=== PATIENT | female | born 1935 | race African-American/Black ===

== ENCOUNTER 2021-06-01 13:05 | Emergency (ER) | payer OTHER ==
[~2021-06-01] VITALS: Ht 172.7 cm; Wt 108.9 kg
--- NOTE | 2021-06-01 13:05 | NUR ---
Pt PIO MATHIS, via gurney to bed 07.
[2021-06-01 13:07] VITALS: BP 107/49
--- NOTE | 2021-06-01 13:23 | NUR ---
XR AT PT BEDSIDE
--- NOTE | 2021-06-01 13:23 | NUR ---
PT MOVED TO BED 6
--- NOTE | 2021-06-01 13:29 | NUR ---
DR CHAIDEZ AT BEDSIDE EVALUATING PT
[2021-06-01] MEDS ORDERED: FUROSEMIDE 40 MG/4 ML VIAL IVP ONE (13:35)
[2021-06-01 14:12] LABS: BASOPHILS % (AUTO) 0.4 % (0.0-2.0); EOSINOPHILS # (AUTO) 0.1 K/uL (0-0.4); EOSINOPHILS % (AUTO) 2.1 % (0.0-4.0); HEMATOCRIT 39.5 % (36-48); HEMOGLOBIN 12.7 g/dL (12.0-16.0); LYMPHOCYTES # (AUTO) 2.3 K/uL (2.5-16.5); LYMPHOCYTES % (AUTO) 41.2 % (20.5-51.1); MEAN CORPUSCULAR HEMOGLOBIN 28 pg (27-31); MEAN CORPUSCULAR HGB CONC 32 g/dL (33-37); MEAN CORPUSCULAR VOLUME 87.3 fL (80-94); MONOCYTES # (AUTO) 0.5 K/uL (0.8-1.0); MONOCYTES % (AUTO) 9.1 % (1.7-9.3); NEUTROPHILS # (AUTO) 2.6 K/uL (1.8-7.7); NEUTROPHILS % (AUTO) 47.2 % (42.2-75.2); PLATELET COUNT (AUTO) 112 K/uL (140-450); RED BLOOD CELL COUNT(AUTO) 4.52 MIL/uL (4.20-5.40); RED CELL DISTRIBUTION WIDTH 15.2 % (11.6-13.7); WHITE BLOOD COUNT (AUTO) 5.5 K/uL (4.8-10.8)
[2021-06-01] MEDS ORDERED: NITROGLYCERIN 0.4 MG TAB SL ONE ×2 (14:15→14:19)
[2021-06-01] MEDS ORDERED: NITROGLYCERIN 50 MG/D5W PREMIX 250 ML IV ONE (14:20)
--- NOTE | 2021-06-01 14:21 | NUR ---
PT BP 102/57 ORDER NITRO TABLET SL AND DRIP, CONFIRMED WITH PRIOR TO ADMINISTRATION. DR. MEYER OK TO GIVE 1 TABLET.
--- NOTE | 2021-06-01 14:23 | NUR ---
85 Y/O FEMALE BIBA FROM HOME C/O SOB AND ACUTE ONSET OF CHEST PAIN X 1 DAY. BASELINE 94%; 98% AFTER BREATHING TX. PER EMS, RALES AND LOBES. PT HAS NOTED EDEMA IN LLE. PT STATES SHE HAS NOT BEEN TAKING HER MEDICATIONS PRESCRIBED INCLUDING NOT TAKING HER LASIX FOR 2 DAYS. 324 ASA AND 0.4MG NTGTWO TIMES PRIOR TO ARRIVAL. PT ALERT AND ORIENTED X4. PMH: HTN, CHF Meds: Lasix NKDA
[2021-06-01 14:35] LABS: ALBUMIN 3.7 g/dL (3.4-5.0); ANION GAP 13.4 (8-16); ASPARTATE AMINOTRANSFERASE 21 U/L (15-37); CARBON DIOXIDE 27.3 mmol/L (21-32); CHLORIDE 101 mmol/L (98-107); CREATININE 1.1 mg/dL (0.6-1.3); GLUCOSE 122 mg/dL (74-106); POTASSIUM 3.7 mmol/L (3.5-5.1); SODIUM SERUM 138 mmol/L (136-145); TOTAL BILIRUBIN 0.7 mg/dL (0.0-1.0); UREA NITROGEN, BLOOD 16 mg/dL (7-18)
[2021-06-01 14:42] VITALS: BP 101/44
[2021-06-01] MEDS ORDERED: ASPIRIN 325 MG TAB PO ONE (14:45)
--- NOTE | 2021-06-01 15:02 | NUR ---
SPOKE WITH JASE AT PT'S PRIMARY CARE OFFICE [phone]. MEDICATION LIST WILL BE FAXED OVER. PCP MADE AWARE PT WILL BE ADMITTED FOR ACUTE EXACERBATION OF CHF.
--- NOTE | 2021-06-01 15:29 | NUR ---
PURE WICK IN PLACE. WILL CONTINUE TO MONITOR URINE OUTPUT
--- NOTE | 2021-06-01 15:33 | NUR ---
DAUGHTER NATALY AT PT BEDSIDE
[2021-06-01] MEDS ORDERED: [UNRECOGNIZED DRUG - CODE] NS (15:38)
[2021-06-01] MEDS ORDERED: CHOL500040 PO (15:38)
[2021-06-01] MEDS ORDERED: FURO-570 PO (15:38)
[2021-06-01] MEDS ORDERED: LANS15EC28 PO (15:38)
[2021-06-01] MEDS ORDERED: PRAV40TA3 PO (15:38)
[2021-06-01] MEDS ORDERED: AMLO10TA PO (15:38)
[2021-06-01] MEDS ORDERED: ROSU40TA PO (15:38)
[2021-06-01] MEDS ORDERED: AZEL137S8 NS (15:43)
--- NOTE | 2021-06-01 16:00 | NUR ---
PLACED PT ON 8L OXYMIZER, PT SATURATIONS REMAIN ABOVE 95% AFTER 5 MINS, SPOKE WITH DR. MEYER. AGREES WITH SWITCH TO OXYMIZER. PT IS IN NO DISTRESS, WILL CONTINUE TO MONITOR. BI-PAP ON STAND-BY AT THIS TIME
[2021-06-01] MEDS ORDERED: ACETAMINOPHEN EXTRA STRENGTH 500 MG TAB PO ONE (16:35)
[2021-06-01] MEDS ORDERED: ASPIRIN 325 MG TAB ONE (16:42)
--- NOTE | 2021-06-01 17:33 | NUR ---
REPORT CALLED TO [facility] SPOKE WITH CHAGO HAIDER. [phone]
[2021-06-01] MEDS ORDERED: HEPARIN PER PHARMACY MC PRN (17:40)
[2021-06-01] MEDS ORDERED: hePARIN / DEXT 5% PREMIX 250 ML IV ONE (17:40)
[2021-06-01] MEDS ORDERED: hePARIN / DEXT 5% PREMIX 250 ML IV SCH (18:00)
[2021-06-01 18:10] LABS: PROTHROMBIN TIME 10.2 secs (10.8-13.4)
--- NOTE | 2021-06-01 19:23 | NUR ---
Pt report given to NELL MA. Transfer of care at this time.
[2021-06-01] MEDS ORDERED: ENOXAPARIN 100 MG/ML SYR SUBQ ONE (19:30)
[2021-06-01] MEDS ORDERED: ENOXAPARIN 40 MG/0.4 ML SYR SUBQ ONE (19:49)
[2021-06-01] MEDS ORDERED: ENOXAPARIN 80 MG/0.8 ML SYR SUBQ ONE (19:49)
--- NOTE | 2021-06-01 19:55 | NUR ---
TITRATED PT O2 TO 6L NC. SPO2 98%. RN AND DR. MEYER NOTIFIED. WILL CONTINUE TO MONITOR PT
--- NOTE | 2021-06-01 20:35 | NUR ---
[facility] AT BEDSIDE
--- NOTE | 2021-06-01 20:47 | NUR ---
[facility] HERE TO TRANSPORT PATIENT TO [facility]. PATIENT ON 6L O2 . ALS TRANSPORT. PT HAS ALL PERSONAL BELONGINGS . REPORT GIVEN OFF TO [facility]
== END 2021-06-01 20:47 | disposition short-term general hospital (02) ==
LOC: MED 13:05
DX: I11.0 Hypertensive heart disease with heart failure (principal); Z20.822 Contact with and (suspected) exposure to COVID-19; I50.9 Heart failure, unspecified; I21.4 Non-ST elevation (NSTEMI) myocardial infarction; R94.31 Abnormal electrocardiogram [ECG] [EKG]; Z98.890 Other specified postprocedural states; Z90.710 Acquired absence of both cervix and uterus; Z79.899 Other long term (current) drug therapy
CPT/HCPCS: 36415; 71045; 80053; 82803; 83880; 84484; 85025; 85610; 85730; 87426; 93005; 96372; 96374; 99291; J1650; J1940